=== PATIENT | female | born 1990 | race Hispanic/Latino ===

== ENCOUNTER 2022-07-29 11:10 | Inpatient (IN) | payer OTHER, SELFPAY ==
[2022-07-29] MEDS ORDERED: Acetaminophen 650 MG/20.3 ML UDCUP ONE (11:30)
[2022-07-29] MEDS ORDERED: Ketorolac Tromethamine 30 MG/ML VIAL ONE (12:25)
[2022-07-29 12:31] LABS: #Basophils 0.1 thou/uL (0.0-0.2); #Lymphocytes 1.2 thou/uL (1.20-3.40); #Monocytes 0.8 thou/uL (0.11-0.59); #Neutrophils 7.8 thou/uL (1.40-6.50); %Basophils 0.6 % (0.0-1.0); %Eosinophils 0.5 % (0.0-10.0); %Lymphocytes 12.1 % (21.0-51.0); %Monocytes 8.4 % (0.0-10.0); %Neutrophils 78.4 % (42.0-75.0); Hemoglobin 14.8 g/dL (12.0-16.0); Mean Corpuscular Hemoglobin 30.2 pg (27.0-31.0); Mean Corpuscular Volume 91.4 fl (78.0-98.0); Platelet Count 314 10x3/uL (130-400); White Blood Cell (WBC) Count 9.9 10x3/uL (4.8-10.8)
[2022-07-29 12:44] LABS: BHCG - Serum Negative (NEGATIVE); Pregs Control Background? CLEAR/WHITE (CLR/WHITE); Pregs Control Bar Appear? YES (CONTROL BAR)
[2022-07-29 13:01] LABS: ALT (SGPT) 12 U/L (8-55); AST (SGOT) 12 U/L (5-34); Albumin 4.2 g/dL (3.5-5.0); Alkaline Phosphatase 117 U/L (40-110); Anion Gap 21 mmol/L (10-20); BUN (Urea Nitrogen) 6 mg/dL (7.0-18.7); Bilirubin, Total 0.4 mg/dL (0.2-1.2); Calc. Creatinine Clearance 0 mL/min (70-130); Calcium 9.1 mg/dL (7.8-10.44); Carbon Dioxide 10 mmol/L (22-29); Chloride 104 mmol/L (98-107); Estimated GFR 117; Globulin 3.9 g/dL (2.4-3.5); Glucose 276 mg/dL (70-105); Potassium 3.9 mmol/L (3.5-5.1); Protein, Total 8.1 g/dL (6.0-8.3); Sodium 131 mmol/L (136-145)
[2022-07-29 13:49] LABS: Analyzer IN Cardio ER; Base Excess -18.8 mEq/L (-2.0 to +3.0); Calcium, Ionized (venous) 1.17 mmol/L (1.16-1.32); Chloride (VBG) 105 mmol/L (98-106); Hemoglobin (Hb) 14.8 g/dL (11.7-15.5); Potassium (VBG) 3.91 mmol/L (3.70-5.30); Sodium 132.5 mmol/L (133-146)
[2022-07-29 13:51] LABS: Actual Bicarbonate (HCO3v) 9 mEq/L (22-28); pH (venous) 7.12 (7.32-7.43)
[2022-07-29] MEDS ORDERED: Ciprofloxacin HCL/Dexameth Otic Drops 7.5 ml Bottle R EAR SCH (14:00)
[2022-07-29] MEDS ORDERED: Ciprofloxacin HCL/Dexameth Otic Drops 7.5 ml Bottle ONE (14:02)
[2022-07-29] MEDS ORDERED: Cefepime 2 GM VIAL ONE (14:26)
[2022-07-29] MEDS ORDERED: Sodium Chloride 0.9% 1,000 ML IV PRN ×4 (14:44)
[2022-07-29] MEDS ORDERED: NS 0.9% w/ 20 MEQ KCL 1,000 ML IV PRN ×2 (14:44)
[2022-07-29] MEDS ORDERED: Acetaminophen 325 MG TAB PO PRN (14:44)
[2022-07-29] MEDS ORDERED: D5 1/2 NS w/20 mEq KCL 1,000 ML IV PRN (14:44)
[2022-07-29] MEDS ORDERED: Dextrose 5 %-0.45 % NaCl 1,000 ML IV PRN (14:44)
[2022-07-29] MEDS ORDERED: Ondansetron PF 4 MG/2 ML Vial IVP PRN (14:44)
[2022-07-29] MEDS ORDERED: Enoxaparin Sodium 40 MG/0.4 ML SYRINGE SC SCH (14:45)
[2022-07-29] MEDS ORDERED: HUMULIN R 100 UNITS in Sodium Chloride 0.9% 100 ML IVPB SCH (14:45)
[2022-07-29] MEDS ORDERED: INSULIN REGULAR IN 0.9 % NACL 100 UNIT/100 ML BAG ONE (14:47)
[2022-07-29] MEDS ORDERED: Vancomycin 1.5 GRAM/300 ML BAG 1.5 GM in Premix Bag 1 BAG IVPB SCH (15:30)
[2022-07-29] MEDS ORDERED: Acetaminophen 325 MG TAB ONE (17:18)
[2022-07-29 18:17] LABS: Anion Gap 20 mmol/L (10-20); BUN (Urea Nitrogen) 7 mg/dL (7.0-18.7); Calc. Creatinine Clearance 0 mL/min (70-130); Calcium 8.7 mg/dL (7.8-10.44); Chloride 107 mmol/L (98-107); Estimated GFR 121; Glucose 235 mg/dL (70-105); Potassium 3.6 mmol/L (3.5-5.1); Sodium 131 mmol/L (136-145)
[2022-07-29] MEDS ORDERED: Acetaminophen/Codeine 30-300mg Tablet ONE ×2 (18:30→18:53)
[2022-07-29 18:31] LABS: Carbon Dioxide 8 mmol/L (22-29)
[2022-07-29] MEDS: Acetaminophen/Codeine 30-300mg Tablet PO PRN (18:55)
[2022-07-29 19:27] LABS: Anion Gap 14 mmol/L (10-20); BUN (Urea Nitrogen) 6 mg/dL (7.0-18.7); Calc. Creatinine Clearance 0 mL/min (70-130); Calcium 8.2 mg/dL (7.8-10.44); Carbon Dioxide 11 mmol/L (22-29); Chloride 111 mmol/L (98-107); Estimated GFR 123; Glucose 200 mg/dL (70-105); Potassium 3.4 mmol/L (3.5-5.1); Sodium 133 mmol/L (136-145)
[2022-07-29 19:46] VITALS: BMI 23.5
[2022-07-29] MEDS ORDERED: NS 0.9% w/ 20 MEQ KCL 1,000 ML ONE (20:13)
[2022-07-29] MEDS ORDERED: Morphine 4 MG/ML VIAL ONE (22:10)
[2022-07-29 23:37] LABS: Anion Gap 12 mmol/L (10-20); BUN (Urea Nitrogen) 6 mg/dL (7.0-18.7); Calc. Creatinine Clearance 163 mL/min (70-130); Calcium 8.1 mg/dL (7.8-10.44); Carbon Dioxide 11 mmol/L (22-29); Chloride 115 mmol/L (98-107); Estimated GFR 129; Glucose 149 mg/dL (70-105); Potassium 3.6 mmol/L (3.5-5.1); Sodium 134 mmol/L (136-145)
[2022-07-30] MEDS ORDERED: Ketorolac Tromethamine 30 MG/ML VIAL ONE ×2 (00:16→08:01)
[2022-07-30] MEDS ORDERED: Cefepime 2 GM VIAL ONE (04:52)
[2022-07-30] MEDS: Cefepime 2 GM in Sodium Chloride 0.9% 100 ML IVPB SCH ×2 (05:01→13:16)
[2022-07-30 05:46] LABS: Anion Gap 8 mmol/L (10-20); BUN (Urea Nitrogen) 6 mg/dL (7.0-18.7); Calc. Creatinine Clearance 170 mL/min (70-130); Calcium 8.3 mg/dL (7.8-10.44); Carbon Dioxide 16 mmol/L (22-29); Chloride 111 mmol/L (98-107); Estimated GFR 130; Glucose 213 mg/dL (70-105); Potassium 3.2 mmol/L (3.5-5.1); Sodium 132 mmol/L (136-145)
[2022-07-30 05:48] LABS: Hemoglobin A1c 11.6 % (4.0-6.0)
[2022-07-30] MEDS: Famotidine/PF 20 mg/2ml Vial SLOW IVP SCH ×2 (07:10→11:08)
[2022-07-30] MEDS ORDERED: Electrolyte Replacement Protocol 1 EACH FS PRN (09:00)
[2022-07-30] MEDS ORDERED: Insulin Glargine 30 UNITS/0.3 ML VIAL SC SCH (09:02)
[2022-07-30] MEDS ORDERED: Dextrose 50% Abboject 50 ML SYRINGE SLOW IVP PRN (09:02)
[2022-07-30] MEDS ORDERED: Dextrose 5% in Water 1,000 ML IV PRN (09:02)
[2022-07-30] MEDS: Acetaminophen/Codeine 30-300mg Tablet PO PRN ×3 (10:45→22:47)
[2022-07-30] MEDS ORDERED: Acetaminophen/Codeine 30-300mg Tablet ONE (10:48)
[2022-07-30] MEDS ORDERED: Enoxaparin Sodium 40 MG/0.4 ML SYRINGE ONE (10:48)
[2022-07-30] MEDS: Enoxaparin Sodium 40 MG/0.4 ML SYRINGE SC SCH (10:54)
[2022-07-30] MEDS: Sodium Chloride 0.9% 1,000 ML IV SCH ×3 (10:55→21:04)
[2022-07-30] MEDS: Ketorolac Tromethamine 30 MG/ML VIAL IVP PRN ×3 (12:13→23:49)
[2022-07-30] MEDS: HumaLOG 300 UNITS/3 ML VIAL SC PRN ×3 (12:15→21:02)
[2022-07-30] MEDS ORDERED: Vancomycin 1.5 GRAM/300 ML BAG 1.5 GM in Premix Bag 1 BAG IVPB SCH (12:45)
[2022-07-30] MEDS: Ciprofloxacin HCL/Dexameth Otic Drops 7.5 ml Bottle R EAR SCH ×2 (14:02→21:03)
[2022-07-30] MEDS: Insulin Glargine 30 UNITS/0.3 ML VIAL SC SCH (21:03)
[2022-07-30] MEDS: VANCOMYCIN 1.25 GM/250 ML BAG 1.25 GM in Premix Bag 1 BAG IVPB SCH (21:04)
[2022-07-30] MEDS: Morphine 4 MG/ML VIAL SLOW IVP PRN (23:11)
[2022-07-31] MEDS ORDERED: Acetaminophen 500 MG TAB PO PRN (02:08)
[2022-07-31] MEDS: HYDROcodone/Acetaminophen 5/325 mg Tablet PO PRN ×3 (02:35→20:24)
[2022-07-31] MEDS: Cefepime 2 GM in Sodium Chloride 0.9% 100 ML IVPB SCH ×2 (02:36→13:19)
[2022-07-31] MEDS: VANCOMYCIN 1.25 GM/250 ML BAG 1.25 GM in Premix Bag 1 BAG IVPB SCH ×2 (05:40→14:35)
[2022-07-31] MEDS: Sodium Chloride 0.9% 1,000 ML IV SCH ×3 (05:41→23:51)
[2022-07-31] MEDS: Ketorolac Tromethamine 30 MG/ML VIAL IVP PRN ×4 (05:52→23:52)
[2022-07-31] MEDS: HumaLOG 300 UNITS/3 ML VIAL SC PRN ×4 (06:01→20:25)
[2022-07-31] MEDS: Enoxaparin Sodium 40 MG/0.4 ML SYRINGE SC SCH (07:21)
[2022-07-31] MEDS: Ciprofloxacin HCL/Dexameth Otic Drops 7.5 ml Bottle R EAR SCH ×3 (08:19→20:23)
[2022-07-31 08:30] LABS: Anion Gap 10 mmol/L (10-20); BUN (Urea Nitrogen) 6 mg/dL (7.0-18.7); Calc. Creatinine Clearance 208 mL/min (70-130); Calcium 7.8 mg/dL (7.8-10.44); Carbon Dioxide 19 mmol/L (22-29); Chloride 113 mmol/L (98-107); Estimated GFR 136; Glucose 204 mg/dL (70-105); Magnesium 1.7 mg/dL (1.6-2.6); Sodium 139 mmol/L (136-145)
[2022-07-31] MEDS ORDERED: Insulin Glargine 30 UNITS/0.3 ML VIAL SC SCH (12:37)
[2022-07-31 13:34] LABS: Vancomycin, Trough 6.2 ug/mL
[2022-07-31] MEDS: Ibuprofen 200 MG TAB PO SCH ×2 (15:19→20:23)
[2022-07-31] MEDS: Vancomycin 1.5 GRAM/300 ML BAG 1.5 GM in Premix Bag 1 BAG IVPB SCH ×2 (15:42→23:51)
[2022-07-31] MEDS: Insulin Glargine 30 UNITS/0.3 ML VIAL SC SCH (20:25)
[2022-07-31] MEDS ORDERED: GUAIFENESIN SF SOLN 200 MG/10 ML UDCUP PO PRN (22:57)
[2022-08-01] MEDS: Cefepime 2 GM in Sodium Chloride 0.9% 100 ML IVPB SCH (01:57)
[2022-08-01] MEDS: HYDROcodone/Acetaminophen 5/325 mg Tablet PO PRN (02:30)
[2022-08-01] MEDS: Acetaminophen/Codeine 30-300mg Tablet PO PRN (05:24)
[2022-08-01] MEDS: Vancomycin 1.5 GRAM/300 ML BAG 1.5 GM in Premix Bag 1 BAG IVPB SCH (06:33)
[2022-08-01] MEDS: HumaLOG 300 UNITS/3 ML VIAL SC PRN ×4 (06:33→20:31)
[2022-08-01 07:42] LABS: #Eosinphils 0.1 thou/uL (0.0-0.7); #Lymphocytes 1.4 thou/uL (1.20-3.40); #Monocytes 0.6 thou/uL (0.11-0.59); #Neutrophils 2.6 thou/uL (1.40-6.50); %Basophils 0.1 % (0.0-1.0); %Eosinophils 2.3 % (0.0-10.0); %Lymphocytes 29.2 % (21.0-51.0); %Monocytes 12.7 % (0.0-10.0); %Neutrophils 55.8 % (42.0-75.0); Hemoglobin 11.1 g/dL (12.0-16.0); Mean Corpuscular HGB CONC 33.7 g/dL (32.0-36.0); Mean Corpuscular Hemoglobin 30.8 pg (27.0-31.0); Mean Corpuscular Volume 91.4 fl (78.0-98.0); Mean Platelet Volume 7.9 fL (7.4-10.4); Platelet Count 304 10x3/uL (130-400); RBC Distribution Width 11.1 % (11.5-14.5); Red Blood Cell (RBC) Count 3.61 mill/uL (4.20-5.40); White Blood Cell (WBC) Count 4.6 10x3/uL (4.8-10.8)
[2022-08-01 07:48] LABS: Anion Gap 8 mmol/L (10-20); BUN (Urea Nitrogen) 6 mg/dL (7.0-18.7); Calc. Creatinine Clearance 203 mL/min (70-130); Calcium 7.9 mg/dL (7.8-10.44); Carbon Dioxide 22 mmol/L (22-29); Chloride 111 mmol/L (98-107); Estimated GFR 136; Glucose 207 mg/dL (70-105); Potassium 3.1 mmol/L (3.5-5.1); Sodium 138 mmol/L (136-145)
[2022-08-01] MEDS: Enoxaparin Sodium 40 MG/0.4 ML SYRINGE SC SCH (07:53)
[2022-08-01] MEDS ORDERED: Electrolyte Replacement Protocol 1 EACH FS SCH (08:15)
[2022-08-01] MEDS ORDERED: Potassium Chloride 20 MEQ TAB PO SCH (08:30)
[2022-08-01] MEDS: Ciprofloxacin HCL/Dexameth Otic Drops 7.5 ml Bottle R EAR SCH ×3 (08:54→20:32)
[2022-08-01] MEDS: Ketorolac Tromethamine 30 MG/ML VIAL IVP PRN ×3 (08:55→22:11)
[2022-08-01 08:56] LABS: Magnesium 1.8 mg/dL (1.6-2.6)
[2022-08-01] MEDS: Sodium Chloride 0.9% 1,000 ML IV SCH (08:56)
[2022-08-01] MEDS ORDERED: Insulin Glargine 30 UNITS/0.3 ML VIAL SC SCH ×2 (09:00→21:00)
[2022-08-01] MEDS ORDERED: Loratadine 10 MG TAB PO PRN (10:27)
[2022-08-01] MEDS ORDERED: Magnesium 2 GM/50 ML(in water) 2 GM in Premix Bag 1 BAG IVPB SCH (13:00)
[2022-08-01] MEDS: Benzonatate 100 MG CAP PO PRN (13:05)
[2022-08-01] MEDS: Morphine 4 MG/ML VIAL SLOW IVP PRN ×2 (13:06→20:31)
[2022-08-02] MEDS: Ketorolac Tromethamine 30 MG/ML VIAL IVP PRN ×4 (04:48→23:33)
[2022-08-02] MEDS: HumaLOG 300 UNITS/3 ML VIAL SC PRN ×4 (04:48→20:43)
[2022-08-02 07:13] LABS: Anion Gap 12 mmol/L (10-20); BUN (Urea Nitrogen) 7 mg/dL (7.0-18.7); Calc. Creatinine Clearance 177 mL/min (70-130); Calcium 8.3 mg/dL (7.8-10.44); Carbon Dioxide 26 mmol/L (22-29); Chloride 105 mmol/L (98-107); Estimated GFR 131; Glucose 208 mg/dL (70-105); Potassium 3.2 mmol/L (3.5-5.1); Sodium 140 mmol/L (136-145)
[2022-08-02] MEDS: Enoxaparin Sodium 40 MG/0.4 ML SYRINGE SC SCH (07:38)
[2022-08-02] MEDS: Ciprofloxacin HCL/Dexameth Otic Drops 7.5 ml Bottle R EAR SCH ×3 (08:30→20:43)
[2022-08-02] MEDS: Insulin Glargine 30 UNITS/0.3 ML VIAL SC SCH (08:31)
[2022-08-02] MEDS: Morphine 4 MG/ML VIAL SLOW IVP PRN ×3 (08:32→22:05)
[2022-08-02] MEDS: Benzonatate 100 MG CAP PO PRN ×2 (08:33→23:33)
[2022-08-02] MEDS ORDERED: Potassium Chloride 20 MEQ TAB PO SCH (10:45)
[2022-08-02] MEDS ORDERED: Lidocaine 1% w/Epinephrine 1:100K 20 ML VIAL ONE (11:41)
[2022-08-02] MEDS ORDERED: Lidocaine 1% (PF) 30 ML VIAL ONE (12:25)
[2022-08-02] MEDS ORDERED: EPINEPHrine 1 MG/ML AMP ONE (12:25)
[2022-08-02] MEDS: Acetaminophen/Codeine 30-300mg Tablet PO PRN ×2 (13:14→20:49)
[2022-08-02] MEDS ORDERED: Magnesium 2 GM/50 ML(in water) 2 GM in Premix Bag 1 BAG IVPB SCH (13:15)
[2022-08-02] MEDS: Sulfameth/Trimethoprim DS 800-160mg TAB PO SCH (20:44)
[2022-08-02] MEDS ORDERED: Insulin Glargine 30 UNITS/0.3 ML VIAL SC SCH (21:00)
[2022-08-03] MEDS: HumaLOG 300 UNITS/3 ML VIAL SC PRN (05:19)
[2022-08-03] MEDS: Ketorolac Tromethamine 30 MG/ML VIAL IVP PRN (05:21)
[2022-08-03 06:36] VITALS: TEMP 98.4
[2022-08-03 07:29] LABS: Anion Gap 12 mmol/L (10-20); BUN (Urea Nitrogen) 14 mg/dL (7.0-18.7); Calc. Creatinine Clearance 139 mL/min (70-130); Calcium 8.8 mg/dL (7.8-10.44); Carbon Dioxide 26 mmol/L (22-29); Chloride 103 mmol/L (98-107); Estimated GFR 124; Glucose 233 mg/dL (70-105); Potassium 3.9 mmol/L (3.5-5.1); Sodium 137 mmol/L (136-145)
[2022-08-03 08:20] VITALS: BP 100/68
[2022-08-03] MEDS: Sulfameth/Trimethoprim DS 800-160mg TAB PO SCH (08:49)
[2022-08-03] MEDS: Insulin Glargine 30 UNITS/0.3 ML VIAL SC SCH (08:49)
[2022-08-03] MEDS: Enoxaparin Sodium 40 MG/0.4 ML SYRINGE SC SCH (08:50)
[2022-08-03] MEDS: Ciprofloxacin HCL/Dexameth Otic Drops 7.5 ml Bottle R EAR SCH (08:50)
[2022-08-03] MEDS: Acetaminophen/Codeine 30-300mg Tablet PO PRN (08:53)
[2022-08-03] MEDS: Morphine 4 MG/ML VIAL SLOW IVP PRN (08:54)
[2022-08-03] MEDS: Benzonatate 100 MG CAP PO PRN (08:54)
== END 2022-08-03 09:52 | disposition home or self-care (01) | DRG 154 ==
LOC: ERS 11:10 → ERHOLD 14:25 → T4-B 07-30 11:33
PROVIDERS: ADMIT Family Medicine; ATTEND Family Medicine
PROC: 09900ZZ Drainage of Right External Ear, Open Approach (ICD-10-PCS; principal; 2022-08-02)
DX: H60.01 Abscess of right external ear (principal); E10.10 Type 1 diabetes mellitus with ketoacidosis without coma; B95.61 Methicillin susceptible Staphylococcus aureus infection as the cause of diseases classified elsewhere; E87.6 Hypokalemia; D64.9 Anemia, unspecified; Q18.2 Other branchial cleft malformations; Z28.21 Immunization not carried out because of patient refusal; Z79.4 Long term (current) use of insulin
CPT/HCPCS: 36415; 36416; 70450; 80048; 80053; 80202; 82010; 82805; 83036; 83605; 83735; 83930; 84703; 85025; 87040; 87070; 87077; 87186; 87205; 96374; 96375; 96376; J0171; J0692; J1650; J1815; J1885; J1956; J2001; J2270; J3370; J3475; J3480; J3490; J7050

== ENCOUNTER 2022-12-07 21:32 | Emergency (ER) | payer SELFPAY ==
[2022-12-08] MEDS ORDERED: Ketorolac Tromethamine 30 MG/ML VIAL ONE (00:27)
== END 2022-12-08 00:38 | disposition home or self-care (01) ==
LOC: ERS 21:32
DX: H60.92 Unspecified otitis externa, left ear (principal); E11.9 Type 2 diabetes mellitus without complications; Z79.4 Long term (current) use of insulin
CPT/HCPCS: 96372; 99282; J1885

== ENCOUNTER 2023-06-22 12:00 | Outpatient (CLI) | payer OTHER | END 2023-06-22 12:01 | disposition home or self-care (01) | LOC: BICULT 12:00 | PROVIDERS: ATTEND Family Medicine | DX: O09.892 Supervision of other high risk pregnancies, second trimester (principal); Z3A.21 21 weeks gestation of pregnancy | CPT/HCPCS: 76805 ==

== ENCOUNTER 2023-09-04 21:07 | Emergency (ER) | payer OTHER | END 2023-09-04 21:44 | disposition home or self-care (01) | LOC: ERS 21:07 | DX: O99.613 Diseases of the digestive system complicating pregnancy, third trimester (principal); K03.81 Cracked tooth; O24.113 Pre-existing type 2 diabetes mellitus, in pregnancy, third trimester; Z3A.32 32 weeks gestation of pregnancy | CPT/HCPCS: 99282 ==

== ENCOUNTER 2024-08-25 16:43 | Inpatient (IN) | payer OTHER ==
[2024-08-25] MEDS ORDERED: Ondansetron PF 4 MG/2 ML Vial ONE (17:17)
[2024-08-25 17:28] LABS: Phosphorus 2.3 mg/dL (2.3-4.7)
[2024-08-25 17:33] LABS: ALT (SGPT) 11 U/L (8-55); AST (SGOT) 9 U/L (5-34); Albumin 4.3 g/dL (3.5-5.0); Alkaline Phosphatase 75 U/L (40-110); Anion Gap 22 mmol/L (10-20); BUN (Urea Nitrogen) 35 mg/dL (7.0-18.7); Bilirubin, Total 0.4 mg/dL (0.2-1.2); Calc. Creatinine Clearance 0 mL/min (70-130); Calcium 9.6 mg/dL (7.8-10.44); Carbon Dioxide 9 mmol/L (22-29); Chloride 117 mmol/L (98-107); Estimated GFR 59; Globulin 3.5 g/dL (2.4-3.5); Glucose 356 mg/dL (70-105); Lipase 197 U/L (8-78); Magnesium 2.4 mg/dL (1.6-2.6); Potassium 3.8 mmol/L (3.5-5.1); Protein, Total 7.8 g/dL (6.0-8.3); Sodium 144 mmol/L (136-145)
[2024-08-25 17:45] LABS: Base Excess -15.9 mEq/L (-2.0 to +3.0); Calcium, Ionized (venous) 1.31 mmol/L (1.16-1.32); Chloride (VBG) 114 mmol/L (98-106); Hematocrit-VBG 37 % (36.0-47.0); Hemoglobin (Hb) 12.7 g/dL (11.7-15.5); Potassium (VBG) 3.88 mmol/L (3.70-5.30); Sodium 148 mmol/L (133-146)
[2024-08-25 17:46] LABS: pH (venous) 7.198 (7.32-7.43)
[2024-08-25 17:47] LABS: Actual Bicarbonate (HCO3v) 10.7 mEq/L (22-28)
[2024-08-25] MEDS ORDERED: Sodium Bicarb 50 MEQ/50 ML Abboject 8.4% SYRINGE ONE (18:04)
[2024-08-25] MEDS ORDERED: Promethazine HCl 25 MG/ML VIAL ONE (18:17)
[2024-08-25] MEDS ORDERED: Morphine 4 MG/ML VIAL ONE (18:17)
[2024-08-25 18:44] LABS: BHCG - Serum Negative (NEGATIVE); Pregs Control Background? CLEAR/WHITE (CLR/WHITE); Pregs Control Bar Appear? YES (CONTROL BAR)
[2024-08-25 18:47] LABS: Hemoglobin A1c 11.5 % (4.0-6.0)
[2024-08-25 19:57] LABS: Lactic Acid 1.04 mmol/L (0.5-2.2)
[2024-08-25 21:00] LABS: Bacteria/HPF None Seen HPF (None Seen); Bilirubin Negative (Negative); Blood, Urine Negative (Negative); CAUTI Indications for Culture Alt mental st,lethar; Clarity Clear (Clear); Glucose, Urine (Dipstick) Greater than 1000 mg/dL (Negative); Ketone, Urine Greater than 150 mg/dL (Negative); Leukocyte Negative Leu/uL (Negative); Nitrite Negative (Negative); Protein, Urine (Dipstick) 50 mg/dL (Neg-Trace); RBC/HPF None Seen HPF (0-3); Specific Gravity, Urine 1.031 (1.002-1.036); Squamous Epithelial 0-3 HPF (0-3); Urobilinogen Normal mg/dL (Less than 2); WBC/HPF 0-3 HPF (0-3)
[2024-08-25 21:02] LABS: Urine Culture Reflex No No
[2024-08-25 21:04] LABS: Amphetamine Not Detected (NotDetected); Barbiturates Screen Not Detected (NotDetected); Benzodiazepine Screen Not Detected (NotDetected); Cocaine Metabolite Screen Detected (NotDetected); Methadone Not Detected (NotDetected); Methamphetamine Not Detected (NotDetected); Opiate Screen Detected (NotDetected); Oxycodone Screen Not Detected (NotDetected); Phencyclidine (PCP) Not Detected (NotDetected); THC/Cannabinoid Screen Not Detected (NotDetected); Tricyclic Screen Not Detected (NotDetected)
[2024-08-25] MEDS ORDERED: NS 0.9% w/ 20 MEQ KCL 1,000 ML IV PRN ×2 (21:38)
[2024-08-25] MEDS ORDERED: Electrolyte Replacement Protocol 1 EACH IVPB PRN (21:38)
[2024-08-25] MEDS ORDERED: Dextrose 50% Abboject 50 ML SYRINGE SLOW IVP PRN ×2 (21:38→21:45)
[2024-08-25] MEDS ORDERED: Dextrose 5 %-0.45 % NaCl 1,000 ML IV PRN ×2 (21:38→21:45)
[2024-08-25] MEDS ORDERED: Sodium Chloride 0.9% 1,000 ML IV PRN ×8 (21:38→21:45)
[2024-08-25] MEDS ORDERED: Bisacodyl 5 MG TAB PO PRN (21:38)
[2024-08-25] MEDS ORDERED: traMADol HCl 50 MG TAB PO PRN (21:38)
[2024-08-25] MEDS ORDERED: Glucagon 1 MG/ML KIT IM PRN (21:45)
[2024-08-25] MEDS ORDERED: D5 1/2 NS w/20 mEq KCL 1,000 ML IV PRN (21:45)
[2024-08-25] MEDS ORDERED: Acetaminophen 325 MG TAB PO PRN (21:45)
[2024-08-25] MEDS ORDERED: Dextrose 5% in Water 1,000 ML IV PRN (21:45)
[2024-08-25] MEDS ORDERED: Ondansetron PF 4 MG/2 ML Vial IVP PRN (21:45)
[2024-08-25] MEDS ORDERED: Insulin Reg, Human 100 UNITS in Sodium Chloride 0.9% 100 ML IVPB SCH (21:45)
[2024-08-25] MEDS ORDERED: NS 0.9% w/ 20 MEQ KCL 1,000 ML/1,000 ML BAG IV PRN ×2 (21:45)
[2024-08-25] MEDS: Dextrose 50% Abboject 50 ML SYRINGE ONE (21:48)
[2024-08-25 21:58] VITALS: BMI 29.8
[2024-08-25] MEDS: Sodium Chloride 0.9% 1,000 ML IV SCH (22:09)
[2024-08-25 22:18] LABS: Anion Gap 15 mmol/L (10-20); BUN (Urea Nitrogen) 26 mg/dL (7.0-18.7); Calc. Creatinine Clearance 119 mL/min (70-130); Calcium 8.9 mg/dL (7.8-10.44); Carbon Dioxide 16 mmol/L (22-29); Chloride 118 mmol/L (98-107); Estimated GFR 102; Glucose 244 mg/dL (70-105); Potassium 3.3 mmol/L (3.5-5.1); Sodium 146 mmol/L (136-145)
[2024-08-25] MEDS: Ondansetron ODT 4 MG TAB SL PRN (22:27)
[2024-08-25] MEDS: D5 1/2 NS w/20 mEq KCL 1,000 ML IV PRN (22:36)
[2024-08-25] MEDS: Potassium Chloride 40 MEQ in Sodium Chloride 0.9% 250 ML 250 ML IVPB SCH (22:59)
[2024-08-26] MEDS: INSULIN REGULAR IN 0.9 % NACL 100 ML IVPB SCH (02:30)
[2024-08-26 04:05] LABS: #Basophils Less than 0.03 10x3/uL (0.0-0.2); #Eosinophils Less than 0.03 10x3/uL (0.0-0.7); %Basophils 0.2 % (0.0-1.0); %Lymphocytes 16.6 % (21.0-51.0); %Monocytes 12.7 % (0.0-10.0); %Neutrophils 70.3 % (42.0-75.0); Hematocrit 31.4 % (36.0-47.0); Hemoglobin 10.2 g/dL (12.0-16.0); Mean Corpuscular HGB CONC 32.5 g/dL (32.0-36.0); Mean Corpuscular Hemoglobin 24.8 pg (27.0-31.0); Mean Corpuscular Volume 76.2 fL (78.0-98.0); Mean Platelet Volume 10.7 fL (7.4-10.4); Platelet Count 286 10x3/uL (130-400); RBC Distribution Width 14.5 % (11.5-14.5); Red Blood Cell (RBC) Count 4.12 mill/uL (4.20-5.40)
[2024-08-26 05:04] LABS: Phosphorus 1.3 mg/dL (2.3-4.7)
[2024-08-26 05:53] LABS: Anion Gap 14 mmol/L (10-20); BUN (Urea Nitrogen) 22 mg/dL (7.0-18.7); Calc. Creatinine Clearance 137 mL/min (70-130); Calcium 8.6 mg/dL (7.8-10.44); Carbon Dioxide 17 mmol/L (22-29); Chloride 119 mmol/L (98-107); Estimated GFR 118; Glucose 129 mg/dL (70-105); Potassium 3.4 mmol/L (3.5-5.1); Sodium 147 mmol/L (136-145)
[2024-08-26] MEDS: Potassium Phosphate 30 MMOL in Sodium Chloride 0.9% 250 ML 250 ML IVPB SCH (06:15)
[2024-08-26] MEDS ORDERED: hydrALAZINE 20 MG/ML VIAL SLOW IVP PRN (07:00)
[2024-08-26] MEDS ORDERED: HumaLOG 300 UNITS/3 ML VIAL SC PRN ×2 (08:31)
[2024-08-26 08:33] LABS: Anion Gap 12 mmol/L (10-20); BUN (Urea Nitrogen) 17 mg/dL (7.0-18.7); Calc. Creatinine Clearance 145 mL/min (70-130); Calcium 8.3 mg/dL (7.8-10.44); Carbon Dioxide 17 mmol/L (22-29); Chloride 115 mmol/L (98-107); Estimated GFR 120; Glucose 266 mg/dL (70-105); Potassium 3.4 mmol/L (3.5-5.1); Sodium 141 mmol/L (136-145)
[2024-08-26] MEDS ORDERED: Glucagon 1 MG/ML KIT IM PRN (08:45)
[2024-08-26] MEDS ORDERED: Insulin Lispro 100 UNIT/ML 10 ML VIAL SC PRN (08:45)
[2024-08-26] MEDS: Insulin Lispro 100 UNIT/ML 10 ML VIAL SC PRN (09:48)
[2024-08-26] MEDS: Insulin Glargine 30 UNITS/0.3 ML VIAL SC SCH (09:48)
[2024-08-26] MEDS: Enoxaparin 40 MG (0.4 mL) SYRINGE SC SCH (09:48)
[2024-08-26] MEDS: Electrolyte Replacement Protocol 1 EACH FS ONE (09:51)
[2024-08-26] MEDS: Ondansetron PF 4 MG/2 ML Vial IVP PRN (10:05)
[2024-08-26] MEDS: Lactated Ringer's 1,000 ML IV SCH (12:26)
[2024-08-26] MEDS: Pantoprazole DR 40 MG TAB PO SCH ×2 (12:26→20:18)
[2024-08-26] MEDS: Lactated Ringer's 500 ML IV SCH (12:26)
[2024-08-26] MEDS: Promethazine HCl 12.5 MG in Sodium Chloride 0.9% 50 ML IVPB PRN (21:25)
[2024-08-27 06:11] LABS: #Basophils Less than 0.03 10x3/uL (0.0-0.2); #Eosinophils Less than 0.03 10x3/uL (0.0-0.7); %Basophils 0.3 % (0.0-1.0); %Eosinophils 0.3 % (0.0-10.0); %Lymphocytes 32.6 % (21.0-51.0); %Monocytes 11.8 % (0.0-10.0); %Neutrophils 54.8 % (42.0-75.0); Hematocrit 33.6 % (36.0-47.0); Mean Corpuscular HGB CONC 32.7 g/dL (32.0-36.0); Mean Corpuscular Hemoglobin 24.6 pg (27.0-31.0); Mean Corpuscular Volume 75.2 fL (78.0-98.0); Mean Platelet Volume 10.3 fL (7.4-10.4); Platelet Count 258 10x3/uL (130-400); RBC Distribution Width 13.7 % (11.5-14.5); Red Blood Cell (RBC) Count 4.47 mill/uL (4.20-5.40)
[2024-08-27 06:44] LABS: Anion Gap 16 mmol/L (10-20); BUN (Urea Nitrogen) 5 mg/dL (7.0-18.7); Calc. Creatinine Clearance 188 mL/min (70-130); Calcium 8.5 mg/dL (7.8-10.44); Carbon Dioxide 20 mmol/L (22-29); Chloride 104 mmol/L (98-107); Estimated GFR 128; Glucose 209 mg/dL (70-105); Magnesium 1.9 mg/dL (1.6-2.6); Phosphorus 2.3 mg/dL (2.3-4.7); Potassium 2.9 mmol/L (3.5-5.1); Sodium 137 mmol/L (136-145)
[2024-08-27] MEDS: Potassium Chloride 20 MEQ TAB PO SCH ×3 (09:55→23:37)
[2024-08-27] MEDS: Magnesium 2 GM/50 ML(in water) 2 GM in Premix 1 BAG IVPB SCH (09:59)
[2024-08-27] MEDS: Potassium Chloride 20 MEQ in Premix 1 BAG IVPB SCH (14:12)
[2024-08-27] MEDS: Insulin Glargine 30 UNITS/0.3 ML VIAL SC SCH (14:12)
[2024-08-27] MEDS: traMADol HCl 50 MG TAB PO PRN (17:01)
[2024-08-27 18:30] LABS: Potassium 3.3 mmol/L (3.5-5.1)
[2024-08-27] MEDS: Prochlorperazine Maleate 5 MG TAB PO PRN (19:59)
[2024-08-28] MEDS: Lidocaine 2% Viscous Solution 20 ML, Aluminum & Magnesium Hydroxide 30 ML, Donnatal Eli... SSW SCH (04:45)
[2024-08-28 06:19] LABS: #Basophils 0.03 10x3/uL (0.0-0.2); %Basophils 0.5 % (0.0-1.0); %Eosinophils 1.1 % (0.0-10.0); %Lymphocytes 47.2 % (21.0-51.0); %Monocytes 10.5 % (0.0-10.0); %Neutrophils 40.5 % (42.0-75.0); Hematocrit 36.4 % (36.0-47.0); Hemoglobin 11.7 g/dL (12.0-16.0); Mean Corpuscular HGB CONC 32.1 g/dL (32.0-36.0); Mean Corpuscular Hemoglobin 24.2 pg (27.0-31.0); Mean Corpuscular Volume 75.4 fL (78.0-98.0); Mean Platelet Volume 10.9 fL (7.4-10.4); Platelet Count 266 10x3/uL (130-400); RBC Distribution Width 13.7 % (11.5-14.5); Red Blood Cell (RBC) Count 4.83 mill/uL (4.20-5.40)
[2024-08-28 06:34] LABS: Anion Gap 17 mmol/L (10-20); BUN (Urea Nitrogen) 10 mg/dL (7.0-18.7); Calc. Creatinine Clearance 153 mL/min (70-130); Calcium 8.8 mg/dL (7.8-10.44); Carbon Dioxide 19 mmol/L (22-29); Chloride 104 mmol/L (98-107); Estimated GFR 121; Glucose 218 mg/dL (70-105); Potassium 3.2 mmol/L (3.5-5.1); Sodium 137 mmol/L (136-145)
[2024-08-28] MEDS: Potassium Chloride 20 MEQ TAB PO SCH (08:21)
[2024-08-28 08:32] VITALS: BP 123/84; TEMP 97.7
[2024-08-28] MEDS ORDERED: Ondansetron PF 4 MG/2 ML Vial IVP PRN (08:49)
[2024-08-28] MEDS ORDERED: Pantoprazole 40 MG VIAL IVP SCH (09:00)
[2024-08-28] MEDS: metFORMIN 500 MG TAB PO SCH (09:58)
[2024-08-28] MEDS: Metoclopramide 10 MG/10 ML UDCUP PO SCH ×2 (09:58→11:59)
[2024-08-28] MEDS ORDERED: Dextrose 50% Abboject 50 ML SYRINGE SLOW IVP PRN (12:00)
[2024-08-28] MEDS ORDERED: Dextrose 5% in Water 1,000 ML IV PRN (12:00)
[2024-08-28] MEDS: Acetaminophen 325 MG TAB PO PRN (12:45)
[2024-08-28] MEDS: Ondansetron ODT 4 MG TAB PO SCH (12:45)
[2024-08-28] MEDS: Insulin Glargine 30 UNITS/0.3 ML VIAL SC SCH (14:41)
[2024-08-28] MEDS ORDERED: metFORMIN 500 MG TAB PO SCH (17:00)
[2024-08-29] MEDS ORDERED: Pantoprazole DR 40 MG TAB PO SCH (09:00)
== END 2024-08-28 15:05 | disposition home or self-care (01) | DRG 638 ==
LOC: ERS 16:43 → IMCU/EMU 18:19 → T4-A 08-27 16:24
PROVIDERS: ADMIT Internal Medicine; ATTEND Family Medicine
DX: E11.10 Type 2 diabetes mellitus with ketoacidosis without coma (principal); N17.9 Acute kidney failure, unspecified; T38.3X6A Underdosing of insulin and oral hypoglycemic [antidiabetic] drugs, initial encounter; F14.90 Cocaine use, unspecified, uncomplicated; K21.9 Gastro-esophageal reflux disease without esophagitis; E11.43 Type 2 diabetes mellitus with diabetic autonomic (poly)neuropathy; K31.84 Gastroparesis; Z91.148 Patient's other noncompliance with medication regimen for other reason; Z79.4 Long term (current) use of insulin; Z79.899 Other long term (current) drug therapy; Z79.84 Long term (current) use of oral hypoglycemic drugs
CPT/HCPCS: 36415; 36416; 51701; 71045; 80048; 80306; 81001; 82010; 82805; 83036; 83605; 83690; 83735; 84100; 84703; 85025; 87428; 93005; 96365; 96366; 96368; 96375; J1650; J1815; J2272; J2405; J2550; J3475; J3480; J7050; J7120; J7999; Q0162; Q0164

== ENCOUNTER 2024-09-30 07:42 | Outpatient (CLI) | payer OTHER | END 2024-09-30 07:43 | disposition home or self-care (01) | LOC: NM 07:42 | PROVIDERS: ATTEND Family Medicine | DX: K31.84 Gastroparesis (principal) | CPT/HCPCS: 78264; A9541 ==